=== PATIENT | male | born 1975 | race Caucasian/White ===

== ENCOUNTER 2016-05-23 22:37 | Emergency (ER) | payer OTHER ==
--- NOTE | 2016-05-23 23:38 | ED ORDER SUMMARY ---
..... Patient: HANG SILVA OrderSheet [facility] VisitID: [id number] [place] [address] 40y, M Registration Date/Time: 05/23/2016 ORDER SHEET Weight: 74.8 kg (stated) Allergies: No Known Drug Allergy GENERAL ORDERS: GC/Chlamydia, Urine (Urine, Clean Catch) (...) Urgent (23:08 05/23/2016 Edgar Marques) (Ack 23:11 Argelia) (23:21 RCollier R.N.) UA-Culture if indicated Urgent (23:05/23/2016 Edgar Marques) (Ack 23:11 Argelia) (23:21 RCollier R.N.) MEDICATION ORDERS: Azithromycin PO 1000 mg (NOW) (23:08 05/23/2016 Edgar Marques) (Ack 23:11 RCollier R.N.) (23:22 RCollier R.N.) Ceftriaxone IM 250 mg (NOW) (23:05/23/2016 Edgar Marques) (Ack 23:11 RCollier R.N.) (23:24 RCollier R.N.) IV FLUIDS: ORDER SHEET NOTES: [Electronically signed by Russ Newman Dr. (23:41 05/23/2016)] [Electronically signed by Adina Courtney R.N. (23:46 05/23/2016)] [Electronically locked/signed by Adina Courtney R.N. (23:46 05/23/2016)]
--- NOTE | 2016-05-23 23:38 | ED NURSING NOTES ---
Clinical Report - Nurses [facility] [place] [address] 05/23/2016 22:38 Patient: HANG SILVA TRIAGE Triage time 22:45. Acuity: LEVEL 4. Chief Complaint: PAIN WITH URINATION and PENILE DISCHARGE. --22:49 Adina Courtney R.N. 22:45 05/23/16. BP: 136/89. HR: 93. RR: 16. O2 saturation: 100% on room air. Temp: 98.4 F (oral). Garcia-Wheeler pain scale: 2/10. --22:49 Adina Courtney R.N. Weight: 74.8 kg stated. Height/Length: 68 inches Per Patient. BMI: 25.1. --22:47 Adina Courtney R.N. Medications None. --22:47 Adina Courtney R.N. Allergies No Known Drug Allergy. --22:47 Adina Courtney R.N. History Arrived by private vehicle. Primary physician (None). ( pt has had hx of gonorrhea in December 2015, he was treated but was not. pt began having symptoms again 3 days ago). Onset. (about 3 days ago). 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 PAST MEDICAL HX: Immunizations: up-to-date. SOCIAL HX: Never smoker. History of drug use: marijuana. No alcohol use. NUTRITIONAL RISK ASSESSMENT: The nutritional risk assessment revealed no deficiencies. FUNCTIONAL ASSESSMENT: Functional assessment: no impairments noted. --22:49 Adina Courtney R.N. PROBLEMS: no known problems. ADDITIONAL SURGERIES: no known surgeries. Interventions ID band on patient. To treatment room. --22:49 Adina Courtney R.N. PHYSICAL ASSESSMENT Ambulatory to room. GENERAL / NEURO / PSYCH: Alert. Oriented X 4. Appears in no acute distress. HEENT: Mucous membranes are pink. RESPIRATORY: Respirations not labored. CVS: Capillary refill less than 2 seconds. SKIN: Skin is warm and dry. --22:49 Adina Courtney R.N. NURSING PROGRESS NOTES Head of bed elevated. Two patient identifiers checked. Call light placed in reach. Side rails up x 1. Bed placed in lowest position. Brakes of bed on. --22:49 Adina Courtney R.N. Patient ready for evaluation- chart flagged. --22:49 Adina Courtney R.N. ( Pt given urinal and "dirty catch" specimen requested.). --22:53 Adina Courtney R.N. 23:19 05/23/2016 Ceftriaxone IM 250 mg with 1% Lidocaine 2.1mL. Given in the left ventral gluteus. Allergies verified and confirmed 5 rights. --23:24 Adina Courtney R.N. 23:21 05/23/2016 Azithromycin PO Tablets 1000 mg given. Allergies verified and confirmed 5 rights. --23:22 Adina Courtney R.N. DISPOSITION / DISCHARGE Condition at departure: stable. No learning barriers present. Discharge instructions provided and reviewed with the patient. Patient verbalized understanding. Written instructions provided in Nicaraguan. The patient was discharged home and accompanied by spouse. He left the Emergency Department ambulatory and via private vehicle. --23:46 Adina Courtney R.N. 23:43 05/23/16. BP: deferred. HR: deferred. RR: 15 (regular). O2 saturation: deferred. Temp: deferred. Pain level now: 0/10. --23:46 Adina Courtney R.N. Locked/Released at 05/23/2016 23:46 by Adina Courtney R.N.
--- NOTE | 2016-05-23 23:38 | ED ORDER SUMMARY ---
..... Patient: HANG SILVA OrderSheet [facility] VisitID: [id number] [place] [address] 40y, M Registration Date/Time: 05/23/2016 ORDER SHEET Weight: 74.8 kg (stated) Allergies: No Known Drug Allergy GENERAL ORDERS: GC/Chlamydia, Urine (Urine, Clean Catch) (...) Urgent (23:08 05/23/2016 Edgar Marques) (Ack 23:11 Argelia) (23:21 RCollier R.N.) UA-Culture if indicated Urgent (23:05/23/2016 Edgar Marques) (Ack 23:11 Areglia) (23:21 RCollier R.N.) MEDICATION ORDERS: Azithromycin PO 1000 mg (NOW) (23:08 05/23/2016 Edgar Marques) (Ack 23:11 RCollier R.N.) (23:22 RCollier R.N.) Ceftriaxone IM 250 mg (NOW) (23:05/23/2016 Edgar Marques) (Ack 23:11 RCollier R.N.) (23:24 RCollier R.N.) IV FLUIDS: ORDER SHEET NOTES: [Electronically signed by Russ Newman Dr. (23:41 05/23/2016)] [Electronically signed by Adina Courtney R.N. (23:46 05/23/2016)] [Electronically locked/signed by Adina Courtney R.N. (23:46 05/23/2016)]
--- NOTE | 2016-05-23 23:38 | ED CLINICAL REPORT ---
Clinical Report - Physicians/Mid Levels [facility] [address] [place] [address] 05/23/2016 22:38 Patient: HANG SILVA Time Seen: 2248; initial patient contact. Arrived- By private vehicle. Historian- patient. HISTORY OF PRESENT ILLNESS Chief Complaint: PENILE DISCHARGE and DYSURIA. This started about 3 days ago and is still present. The problem is described as moderate. It was gradual in onset. The patient has had penile discharge and discomfort with urination. No urinary frequency or urgency of urination. Able to void. The patient has had unprotected intercourse. He has had an unconfirmed exposure to a sexually transmitted disease; (). Similar symptoms previously: Once. Recent medical care: Not recently seen/assessed. REVIEW OF SYSTEMS No fever, chills, flank pain, hematuria or abdominal pain. All systems otherwise negative, except as recorded above. PAST HISTORY Negative. Problems: no known problems. Surgeries: No history of previous surgery. Additional Surgeries: no known surgeries. Medications: None. Allergies: No Known Drug Allergy. SOCIAL HISTORY Never smoker. History of drug use: marijuana. No alcohol use. ADDITIONAL NOTES The nursing notes have been reviewed with agreement regarding the chief complaint, PMH and patient medications and allergies. PHYSICAL EXAM Vital Signs: 05/23/2016 22:45 BP: 136/89. HR: 93. RR: 16. O2 saturation: 100%. Temp: 98.4 F. Garcia-Wheeler pain scale: 2/10. Have been reviewed as normal. Appearance: Alert. Oriented X3. No acute distress. ENT: Normal external inspection. CVS: Heart sounds normal. Rate normal. Rhythm normal. Respiratory: No respiratory distress. Breath sounds normal. Abdomen: Soft and nontender. Bowel sounds normal. Back: No CVA tenderness. : (deferred). Skin: No rash. Neuro: Oriented X 3. LABS, X-RAYS, AND EKG Laboratory Tests: UA-Culture if indicated: (EDITH: 05/23/2016 23:19) ( MsgRcvd 05/23/2016 23:36) Final results Test Result Flag Units (Reference) URINE COLOR YELLOW URINE APPEARANCE CLEAR URINE GLUCOSE NEGATIVE (NEGATIVE) URINE BILIRUBIN NEGATIVE (NEGATIVE) URINE KETONE NEGATIVE (NEGATIVE) URINE SPECIFIC GRAVITY >= 1.030 (1.010-1.030) URINE PH 6.0 (5.0-8.0) URINE PROTEIN TRACE (NEGATIVE) URINE UROBILINOGEN 0.2 EU/dL (0.2-1.0) URINE NITRITE NEGATIVE (NEGATIVE) URINE BLOOD 2+ (NEGATIVE) URINE LEUK ESTERASE POSITIVE (NEGATIVE) URINE RBC 3-5 rbc/hpf (0-1) URINE WBC >100 wbc/hpf (0-1) URINE EPITHELIAL CELLS 0-1 EPI/hpf (0-5) URINE BACTERIA MANY (4+) (NONE SEEN) URINE COMMENT CULTURE INDICATED URINE CULTURES ARE SET-UP BASED ON THE FOLLOWING CRITERIA:POSITIVE NITRITEPOSITIVE LEUKOCYTE ESTERASEGREATER THAN 10 WHITE BLOOD CELLSMODERATE (2+) OR GREATER BACTERIA . PROGRESS AND PROCEDURES Disposition: Discharged home in good and improved condition. Condition: good. CLINICAL IMPRESSION Exposure to STD: gonorrhea. INSTRUCTIONS Your Current Medications: CONTINUE TAKING THE FOLLOWING MEDICATIONS: None*. Follow-up: Follow up with your doctor in about two days. Call for an appointment. Screening today revealed the patient's blood pressure to be in the pre-hypertensive range. The patient should follow up with a primary care provider for blood pressure management. (Electronically signed by Russ Newman Dr. 05/23/2016 23:41)
--- NOTE | 2016-05-23 23:38 | ED NURSING NOTES ---
Clinical Report - Nurses [facility] [place] [address] 05/23/2016 22:38 Patient: HANG SILVA TRIAGE Triage time 22:45. Acuity: LEVEL 4. Chief Complaint: PAIN WITH URINATION and PENILE DISCHARGE. --22:49 Adina Courtney R.N. 22:45 05/23/16. BP: 136/89. HR: 93. RR: 16. O2 saturation: 100% on room air. Temp: 98.4 F (oral). Garcia-Wheeler pain scale: 2/10. --22:49 Adina Courtney R.N. Weight: 74.8 kg stated. Height/Length: 68 inches Per Patient. BMI: 25.1. --22:47 Adina Courtney R.N. Medications None. --22:47 Adina Courtney R.N. Allergies No Known Drug Allergy. --22:47 Adina Courtney R.N. History Arrived by private vehicle. Primary physician (None). ( pt has had hx of gonorrhea in December 2015, he was treated but was not. pt began having symptoms again 3 days ago). Onset. (about 3 days ago). 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 PAST MEDICAL HX: Immunizations: up-to-date. SOCIAL HX: Never smoker. History of drug use: marijuana. No alcohol use. NUTRITIONAL RISK ASSESSMENT: The nutritional risk assessment revealed no deficiencies. FUNCTIONAL ASSESSMENT: Functional assessment: no impairments noted. --22:49 Adina Courtney R.N. PROBLEMS: no known problems. ADDITIONAL SURGERIES: no known surgeries. Interventions ID band on patient. To treatment room. --22:49 Adina Courtney R.N. PHYSICAL ASSESSMENT Ambulatory to room. GENERAL / NEURO / PSYCH: Alert. Oriented X 4. Appears in no acute distress. HEENT: Mucous membranes are pink. RESPIRATORY: Respirations not labored. CVS: Capillary refill less than 2 seconds. SKIN: Skin is warm and dry. --22:49 Adina Courtney R.N. NURSING PROGRESS NOTES Head of bed elevated. Two patient identifiers checked. Call light placed in reach. Side rails up x 1. Bed placed in lowest position. Brakes of bed on. --22:49 Adina Courtney R.N. Patient ready for evaluation- chart flagged. --22:49 Adina Courtney R.N. ( Pt given urinal and "dirty catch" specimen requested.). --22:53 Adina Courtney R.N. 23:19 05/23/2016 Ceftriaxone IM 250 mg with 1% Lidocaine 2.1mL. Given in the left ventral gluteus. Allergies verified and confirmed 5 rights. --23:24 Adina Courtney R.N. 23:21 05/23/2016 Azithromycin PO Tablets 1000 mg given. Allergies verified and confirmed 5 rights. --23:22 Adina Courtney R.N. DISPOSITION / DISCHARGE Condition at departure: stable. No learning barriers present. Discharge instructions provided and reviewed with the patient. Patient verbalized understanding. Written instructions provided in Moldovan. The patient was discharged home and accompanied by spouse. He left the Emergency Department ambulatory and via private vehicle. --23:46 Adina Courtney R.N. 23:43 05/23/16. BP: deferred. HR: deferred. RR: 15 (regular). O2 saturation: deferred. Temp: deferred. Pain level now: 0/10. --23:46 Adina Courtney R.N. Locked/Released at 05/23/2016 23:46 by Adina Courtney R.N.
--- NOTE | 2016-05-23 23:38 | ED CLINICAL REPORT ---
Clinical Report - Physicians/Mid Levels [facility] [address] [place] [address] 05/23/2016 22:38 Patient: HANG SILVA Time Seen: 2248; initial patient contact. Arrived- By private vehicle. Historian- patient. HISTORY OF PRESENT ILLNESS Chief Complaint: PENILE DISCHARGE and DYSURIA. This started about 3 days ago and is still present. The problem is described as moderate. It was gradual in onset. The patient has had penile discharge and discomfort with urination. No urinary frequency or urgency of urination. Able to void. The patient has had unprotected intercourse. He has had an unconfirmed exposure to a sexually transmitted disease; (). Similar symptoms previously: Once. Recent medical care: Not recently seen/assessed. REVIEW OF SYSTEMS No fever, chills, flank pain, hematuria or abdominal pain. All systems otherwise negative, except as recorded above. PAST HISTORY Negative. Problems: no known problems. Surgeries: No history of previous surgery. Additional Surgeries: no known surgeries. Medications: None. Allergies: No Known Drug Allergy. SOCIAL HISTORY Never smoker. History of drug use: marijuana. No alcohol use. ADDITIONAL NOTES The nursing notes have been reviewed with agreement regarding the chief complaint, PMH and patient medications and allergies. PHYSICAL EXAM Vital Signs: 05/23/2016 22:45 BP: 136/89. HR: 93. RR: 16. O2 saturation: 100%. Temp: 98.4 F. Garcia-Wheeler pain scale: 2/10. Have been reviewed as normal. Appearance: Alert. Oriented X3. No acute distress. ENT: Normal external inspection. CVS: Heart sounds normal. Rate normal. Rhythm normal. Respiratory: No respiratory distress. Breath sounds normal. Abdomen: Soft and nontender. Bowel sounds normal. Back: No CVA tenderness. : (deferred). Skin: No rash. Neuro: Oriented X 3. LABS, X-RAYS, AND EKG Laboratory Tests: UA-Culture if indicated: (EDITH: 05/23/2016 23:19) ( MsgRcvd 05/23/2016 23:36) Final results Test Result Flag Units (Reference) URINE COLOR YELLOW URINE APPEARANCE CLEAR URINE GLUCOSE NEGATIVE (NEGATIVE) URINE BILIRUBIN NEGATIVE (NEGATIVE) URINE KETONE NEGATIVE (NEGATIVE) URINE SPECIFIC GRAVITY >= 1.030 (1.010-1.030) URINE PH 6.0 (5.0-8.0) URINE PROTEIN TRACE (NEGATIVE) URINE UROBILINOGEN 0.2 EU/dL (0.2-1.0) URINE NITRITE NEGATIVE (NEGATIVE) URINE BLOOD 2+ (NEGATIVE) URINE LEUK ESTERASE POSITIVE (NEGATIVE) URINE RBC 3-5 rbc/hpf (0-1) URINE WBC >100 wbc/hpf (0-1) URINE EPITHELIAL CELLS 0-1 EPI/hpf (0-5) URINE BACTERIA MANY (4+) (NONE SEEN) URINE COMMENT CULTURE INDICATED URINE CULTURES ARE SET-UP BASED ON THE FOLLOWING CRITERIA:POSITIVE NITRITEPOSITIVE LEUKOCYTE ESTERASEGREATER THAN 10 WHITE BLOOD CELLSMODERATE (2+) OR GREATER BACTERIA . PROGRESS AND PROCEDURES Disposition: Discharged home in good and improved condition. Condition: good. CLINICAL IMPRESSION Exposure to STD: gonorrhea. INSTRUCTIONS Your Current Medications: CONTINUE TAKING THE FOLLOWING MEDICATIONS: None*. Follow-up: Follow up with your doctor in about two days. Call for an appointment. Screening today revealed the patient's blood pressure to be in the pre-hypertensive range. The patient should follow up with a primary care provider for blood pressure management. (Electronically signed by Russ Newman Dr. 05/23/2016 23:41)
--- NOTE | 2016-05-23 23:47 | ED MAR SUMMARY ---
..... Medication Administration Record [facility] [address] [place] [address] Patient: HANG SILVA Visit ID: [id number] 40y, M Weight: 74.8 kg Height/Length: 68 in BMI: 25.1 ALLERGIES: No Known Drug Allergy Given 23:19 05/23/2016 Adina Courtney, R.N. Medication Administered: CEFTRIAXONE [IM], Dose: 250 mg IM, With: 1% LIDOCAINE 2.1 mL. Medication Ordered: Ceftriaxone IM 250 mg (NOW). Given 23:05/23/2016 Adina Courtney, R.N. Medication Administered: AZITHROMYCIN [PO], Dose: 1000 mg Tablets PO. Medication Ordered: Azithromycin PO 1000 mg (NOW).
--- NOTE | 2016-05-23 23:47 | ED MED RECONCILIATION SUMMARY ---
Patient: HANG SILVA Medication Reconciliation Report [facility] VisitID: [id number] [address] [place] [address] 40y, M Registration Date/Time: 05/23/2016 Weight: 74.8 kg Height/Length: 68 in. BMI: 25.1 ALLERGIES: No Known Drug Allergy The patient's Home Medications are listed below: NONE. The source(s) of the original Home Medication information: Not obtained. The following Medications were given to the patient in the Emergency Department: Azithromycin [PO] PO 1000 mg, administered: 05/23/2016 11:21:00 PM Ceftriaxone [IM] IM 250 mg with 1% Lidocaine 2.1 mL, administered: 05/23/2016 11:19:00 PM The following Medications were prescribed to the patient: None.
--- NOTE | 2016-05-23 23:47 | ED MED RECONCILIATION SUMMARY ---
Patient: HANG SILVA Medication Reconciliation Report [facility] VisitID: [id number] [address] [place] [address] 40y, M Registration Date/Time: 05/23/2016 Weight: 74.8 kg Height/Length: 68 in. BMI: 25.1 ALLERGIES: No Known Drug Allergy The patient's Home Medications are listed below: NONE. The source(s) of the original Home Medication information: Not obtained. The following Medications were given to the patient in the Emergency Department: Azithromycin [PO] PO 1000 mg, administered: 05/23/2016 11:21:00 PM Ceftriaxone [IM] IM 250 mg with 1% Lidocaine 2.1 mL, administered: 05/23/2016 11:19:00 PM The following Medications were prescribed to the patient: None.
--- NOTE | 2016-05-23 23:47 | ED MAR SUMMARY ---
..... Medication Administration Record [facility] [address] [place] [address] Patient: HANG SILVA Visit ID: [id number] 40y, M Weight: 74.8 kg Height/Length: 68 in BMI: 25.1 ALLERGIES: No Known Drug Allergy Given 23:19 05/23/2016 Adina Courtney, R.N. Medication Administered: CEFTRIAXONE [IM], Dose: 250 mg IM, With: 1% LIDOCAINE 2.1 mL. Medication Ordered: Ceftriaxone IM 250 mg (NOW). Given 23:05/23/2016 Adina Courtney, R.N. Medication Administered: AZITHROMYCIN [PO], Dose: 1000 mg Tablets PO. Medication Ordered: Azithromycin PO 1000 mg (NOW).
--- NOTE | 2016-05-23 23:47 | ED DISCHARGE INSTRUCTIONS ---
Patient: HANG SILVA General Instructions [facility] VisitID: [id number] [place] [address] 40y, M Registration Date/Time: 05/23/2016 Exposure to STD: gonorrhea. INSTRUCTIONS Your Current Medications: CONTINUE TAKING THE FOLLOWING MEDICATIONS: None*. Follow-up: Follow up with your doctor in about two days. Call for an appointment. Screening today revealed the patient's blood pressure to be in the pre-hypertensive range. The patient should follow up with a primary care provider for blood pressure management. ADDITIONAL INFORMATION Std (Urethritis) (Male, Adult: Gc Or Chlamydia) You have an infection in the urethra (the channel in the penis that passes urine). This is most often due to a bacterial infection with either "Chlamydia" or "Gonorrhea." This is a sexually transmitted disease (STD). It is highly contagious and passed by sexual contact with an infected partner. Symptoms begin within 1-3 weeks after exposure. There is usually a discharge from the penis and burning during urination. Many women with this infection will have only mild symptoms or no symptoms at all early in the disease. A culture test may be taken to confirm the diagnosis. Antibiotics may be started before the culture test returns. Home Care: Your sexual partner needs to be treated even if there are no symptoms. Your partner should contact their own doctor or go to an urgent care clinic or the Public Health Department to be examined and treated. Avoid sexual activity until both you and your partner have completed all antibiotic medicine, and you have been told by your doctor that you are no longer contagious. Take all antibiotic medicine as directed until it is finished. Otherwise, symptoms may recur. Learn about safe sex practices and use these in the future. The safest sex is with a partner who has tested negative and only has sex with you. Condoms offer protection from spreading some sexually transmitted diseases including Gonorrhea, Chlamydia and HIV, but are not a guarantee. Follow Up with your doctor or as advised by our staff. If a culture test was taken, you may call us in three days for the results, or as directed. Another culture test should be taken 4-6 weeks after treatment to be sure the infection has cleared. Follow up with your doctor or the Public Health Department for complete STD screening, including HIV testing. For more information about STD's, contact the National STD Hotline: . Get Prompt Medical Attention if any of the following occur: No improvement after three days of treatment Inability to urinate due to pain Rash or joint pain Painful sores on the penis Enlarged painful lymph nodes (lumps) in the groin Testicle pain or swelling of the scrotum You have been given the following additional information: Urethritis, Male (Gc Vs. Chlam) (Electronically signed by Russ Newman Dr. 05/23/2016 23:41)
--- NOTE | 2016-05-23 23:47 | ED DISCHARGE INSTRUCTIONS ---
Patient: HANG SILVA General Instructions [facility] VisitID: [id number] [place] [address] 40y, M Registration Date/Time: 05/23/2016 Exposure to STD: gonorrhea. INSTRUCTIONS Your Current Medications: CONTINUE TAKING THE FOLLOWING MEDICATIONS: None*. Follow-up: Follow up with your doctor in about two days. Call for an appointment. Screening today revealed the patient's blood pressure to be in the pre-hypertensive range. The patient should follow up with a primary care provider for blood pressure management. ADDITIONAL INFORMATION Std (Urethritis) (Male, Adult: Gc Or Chlamydia) You have an infection in the urethra (the channel in the penis that passes urine). This is most often due to a bacterial infection with either "Chlamydia" or "Gonorrhea." This is a sexually transmitted disease (STD). It is highly contagious and passed by sexual contact with an infected partner. Symptoms begin within 1-3 weeks after exposure. There is usually a discharge from the penis and burning during urination. Many women with this infection will have only mild symptoms or no symptoms at all early in the disease. A culture test may be taken to confirm the diagnosis. Antibiotics may be started before the culture test returns. Home Care: Your sexual partner needs to be treated even if there are no symptoms. Your partner should contact their own doctor or go to an urgent care clinic or the Public Health Department to be examined and treated. Avoid sexual activity until both you and your partner have completed all antibiotic medicine, and you have been told by your doctor that you are no longer contagious. Take all antibiotic medicine as directed until it is finished. Otherwise, symptoms may recur. Learn about safe sex practices and use these in the future. The safest sex is with a partner who has tested negative and only has sex with you. Condoms offer protection from spreading some sexually transmitted diseases including Gonorrhea, Chlamydia and HIV, but are not a guarantee. Follow Up with your doctor or as advised by our staff. If a culture test was taken, you may call us in three days for the results, or as directed. Another culture test should be taken 4-6 weeks after treatment to be sure the infection has cleared. Follow up with your doctor or the Public Health Department for complete STD screening, including HIV testing. For more information about STD's, contact the National STD Hotline: . Get Prompt Medical Attention if any of the following occur: No improvement after three days of treatment Inability to urinate due to pain Rash or joint pain Painful sores on the penis Enlarged painful lymph nodes (lumps) in the groin Testicle pain or swelling of the scrotum You have been given the following additional information: Urethritis, Male (Gc Vs. Chlam) (Electronically signed by Russ Newman Dr. 05/23/2016 23:41)
== END 2016-05-23 23:46 | disposition home or self-care (01) ==
LOC: ED SRH 22:37
DX: Z20.2 Contact with and (suspected) exposure to infections with a predominantly sexual mode of transmission (principal)
CPT/HCPCS: 90004; 90469; 91227; 91228